=== PATIENT | female | born 2000 | race Caucasian/White ===

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

== ENCOUNTER 2018-02-15 11:01 | Emergency (ER) | payer SELFPAY ==
[~2018-02-15] VITALS: Ht 152.4 cm; Wt 49.1 kg
[2018-02-15 11:15] VITALS: BP 133/80; TEMP 98.8
[2018-02-15 12:36] LABS: COLLECTION METHOD CLEAN CATCH
[2018-02-15 12:42] LABS: BASO % 0.3 % (0.0-2.0); EOS # 0.1 (0.0-0.7); EOS % 0.6 % (0-4.0); GRAN # 6.7 (1.4-6.5); GRAN % 75.7 % (42.2-75.2); HEMATOCRIT 38.4 % (35.0-45.0); HEMOGLOBIN 12.9 g/dl (12.0-15.0); LYMPH # 1.2 (1.2-3.4); LYMPH % 13.9 % (20.0-51.0); MEAN CELL VOLUME 90 fl (80.0-95.0); MEAN CORPUSCULAR HEMOGLOBIN 30 pg (26.0-32.0); MEAN CORPUSCULAR HGB CONC 34 g/dl (33.0-37.0); MEAN PLATELET VOLUME 11.7 fl (7.4-10.4); MONO # 0.8 (0.1-0.6); MONO % 9.3 % (1.7-9.3); PLATELET COUNT 200 K/mm3 (130-400); RED BLOOD COUNT 4.27 M/mm3 (4.10-5.30); REDCELL DISTRIBUTION WIDTH-CV 12.4 % (11.5-14.5)
[2018-02-15 12:54] LABS: PH 7 (5-8); SQUAMOUS EPITHELIAL 0-2 /hpf; URINE APPEARANCE Hazy; URINE BACTERIA None Seen /hpf; URINE BILIRUBIN Negative (NEGATIVE); URINE BLOOD Negative (NEGATIVE); URINE COLOR Yellow; URINE GLUCOSE Negative (NEGATIVE); URINE KETONE Negative (NEGATIVE); URINE LEUKOCYTE ESTERASE Negative (NEGATIVE); URINE NITRATE Negative (NEGATIVE); URINE PROTEIN(semi-quant) Negative (NEGATIVE); URINE RBC 0-2 /hpf
[2018-02-15 13:06] LABS: ALBUMIN 4.1 gm/dL (3.5-5.0); BILIRUBIN,TOTAL 1.4 mg/dL (0.0-1.0); CALCIUM 9.4 mg/dL (8.4-10.2); CREATININE, serum 0.57 mg/dL (0.52-1.25); POTASSIUM 3.9 mmol/L (3.4-5.0); TOTAL PROTEIN 7.8 gm/dL (6.4-8.2)
[2018-02-15 13:17] LABS: C-REACTIVE PROTEIN 1.1 mg/dL (0.0-0.9)
[2018-02-15] MEDS ORDERED: MOTRIN 800800 MG/TAB PO (13:41)
[2018-02-15 13:49] VITALS: PULSE 68
== END 2018-02-15 13:50 | disposition home or self-care (01) ==
LOC: COL.ER 11:01
PROVIDERS: Emergency Medicine
DX: R10.2 Pelvic and perineal pain (principal)

== ENCOUNTER 2018-07-11 20:35 | Emergency (ER) | payer SELFPAY ==
[~2018-07-11] VITALS: Ht 152.4 cm; Wt 49.5 kg
[~2018-07-11 20:35] MED LIST changes: +MOTRIN 800800 MG/TAB PO
[2018-07-11 20:39] VITALS: TEMP 98.5
[2018-07-11] MEDS ORDERED: ZOFRAN ODT4 MG PO (21:24)
[2018-07-11 21:40] VITALS: BP 117/82; PULSE 90
== END 2018-07-11 21:41 | disposition home or self-care (01) ==
LOC: COL.ER 20:35
DX: R11.2 Nausea with vomiting, unspecified (principal); R19.7 Diarrhea, unspecified

== ENCOUNTER 2018-07-26 20:55 | Emergency (ER) | payer SELFPAY ==
[~2018-07-26] VITALS: Ht 152.4 cm; Wt 49.1 kg
[~2018-07-26 20:55] MED LIST changes: +ZOFRAN ODT4 MG PO
[2018-07-26 21:00] VITALS: BP 119/70
[2018-07-26] MEDS ORDERED: PHENERGAN 25 TA25 MG PO (21:12)
[2018-07-26 21:36] LABS: BASO % 0.4 % (0.0-2.0); EOS # 0.1 (0.0-0.7); EOS % 1.2 % (0-4.0); GRAN # 5.8 (1.4-6.5); GRAN % 67.5 % (42.2-75.2); HEMATOCRIT 42.5 % (35.0-45.0); HEMOGLOBIN 14.7 g/dl (12.0-15.0); LYMPH # 2.1 (1.2-3.4); LYMPH % 24.5 % (20.0-51.0); MEAN CELL VOLUME 90 fl (80.0-95.0); MEAN CORPUSCULAR HEMOGLOBIN 31 pg (26.0-32.0); MEAN CORPUSCULAR HGB CONC 35 g/dl (33.0-37.0); MEAN PLATELET VOLUME 11.5 fl (7.4-10.4); MONO # 0.5 (0.1-0.6); MONO % 6.2 % (1.7-9.3); PLATELET COUNT 294 K/mm3 (130-400); RED BLOOD COUNT 4.75 M/mm3 (4.10-5.30); REDCELL DISTRIBUTION WIDTH-CV 11.7 % (11.5-14.5)
[2018-07-26 21:46] LABS: ALANINE AMINOTRANSFERASE 28 U/L (9-52); ALBUMIN 4.7 gm/dL (3.5-5.0); ALKALINE PHOSPHATASE 54 U/L (50-136); ANION GAP 8 mmol/L (7-16); AST,SGOT 29 U/L (15-37); BILIRUBIN,TOTAL 1.3 mg/dL (0.0-1.0); BLOOD UREA NITROGEN 11 mg/dL (7-17); CALCIUM 9.6 mg/dL (8.4-10.2); CARBON DIOXIDE 27 mmol/L (22-30); CHLORIDE 107 mmol/L (98-107); GLUCOSE 92 mg/dL (74-106); LIPASE 91 U/L (23-300); POTASSIUM 3.8 mmol/L (3.4-5.0); SODIUM 141 mmol/L (137-145); TOTAL PROTEIN 8.3 gm/dL (6.4-8.2)
[2018-07-26 21:48] LABS: C-REACTIVE PROTEIN < 0.5 mg/dL (0.0-0.9)
[2018-07-26 22:56] VITALS: PULSE 98; TEMP 99.3
== END 2018-07-26 22:56 | disposition home or self-care (01) ==
LOC: COL.ER 20:55
PROVIDERS: Emergency Medicine
DX: R19.7 Diarrhea, unspecified (principal); R11.2 Nausea with vomiting, unspecified
CPT/HCPCS: J2405; J7030

== ENCOUNTER 2018-10-17 15:12 | Emergency (ER) | payer SELFPAY ==
[~2018-10-17] VITALS: Ht 152.4 cm; Wt 49.1 kg
[~2018-10-17 15:12] MED LIST changes: +PHENERGAN 25 TA25 MG PO
[2018-10-17 15:19] VITALS: TEMP 98.9
[2018-10-17 17:16] LABS: COLLECTION METHOD CLEAN CATCH
[2018-10-17 17:24] LABS: PH 7 (5-8); SQUAMOUS EPITHELIAL 0-2 /hpf; URINE APPEARANCE Clear; URINE BACTERIA None Seen /hpf; URINE BILIRUBIN Negative (NEGATIVE); URINE BLOOD Negative (NEGATIVE); URINE COLOR Colorless; URINE GLUCOSE Negative (NEGATIVE); URINE KETONE Negative (NEGATIVE); URINE LEUKOCYTE ESTERASE Negative (NEGATIVE); URINE NITRATE Negative (NEGATIVE); URINE PROTEIN(semi-quant) Negative (NEGATIVE); URINE RBC None Seen /hpf; URINE UROBILINOGEN Negative (NEGATIVE)
[2018-10-17] MEDS ORDERED: FLEXERIL 1010 MG/TAB PO (17:40)
[2018-10-17 18:00] VITALS: BP 113/72; PULSE 76
== END 2018-10-17 18:09 | disposition home or self-care (01) ==
LOC: COL.ER 15:12
PROVIDERS: Physician Assistant
DX: M54.5 Low back pain (principal)
CPT/HCPCS: J1885

== ENCOUNTER 2018-12-30 13:32 | Emergency (ER) | payer SELFPAY ==
[~2018-12-30] VITALS: Ht 165.1 cm; Wt 49.1 kg
[~2018-12-30 13:32] MED LIST changes: +FLEXERIL 1010 MG/TAB PO
[2018-12-30 13:43] VITALS: TEMP 100.3
[2018-12-30 14:52] LABS: COLLECTION METHOD CLEAN CATCH
[2018-12-30 14:59] LABS: BASO % 0.3 % (0.0-2.0); EOS # 0.1 (0.0-0.7); EOS % 0.8 % (0-4.0); GRAN # 3.8 (1.4-6.5); GRAN % 62.4 % (42.2-75.2); HEMATOCRIT 43.2 % (35.0-45.0); HEMOGLOBIN 14.4 g/dl (12.0-15.0); LYMPH # 1.5 (1.2-3.4); LYMPH % 24.4 % (20.0-51.0); MEAN CELL VOLUME 90 fl (80.0-95.0); MEAN CORPUSCULAR HEMOGLOBIN 30 pg (26.0-32.0); MEAN CORPUSCULAR HGB CONC 33 g/dl (33.0-37.0); MEAN PLATELET VOLUME 11.3 fl (7.4-10.4); MONO # 0.7 (0.1-0.6); MONO % 11.9 % (1.7-9.3); PLATELET COUNT 257 K/mm3 (130-400); RED BLOOD COUNT 4.79 M/mm3 (4.10-5.30); REDCELL DISTRIBUTION WIDTH-CV 12.2 % (11.5-14.5)
[2018-12-30 15:01] LABS: PH 9 (5-8); SQUAMOUS EPITHELIAL 0-2 /hpf; URINE APPEARANCE Clear; URINE BACTERIA Rare /hpf; URINE BILIRUBIN Negative (NEGATIVE); URINE BLOOD Negative (NEGATIVE); URINE COLOR Yellow; URINE GLUCOSE Negative (NEGATIVE); URINE KETONE Negative (NEGATIVE); URINE LEUKOCYTE ESTERASE Negative (NEGATIVE); URINE NITRATE Negative (NEGATIVE); URINE PROTEIN(semi-quant) Negative (NEGATIVE); URINE RBC 0-2 /hpf
[2018-12-30 15:13] LABS: ALANINE AMINOTRANSFERASE < 6 U/L (9-52); ALBUMIN 4.9 gm/dL (3.5-5.0); ALKALINE PHOSPHATASE 57 U/L (50-136); ANION GAP 9 mmol/L (7-16); AST,SGOT 35 U/L (15-37); BILIRUBIN,TOTAL 1.6 mg/dL (0.0-1.0); BLOOD UREA NITROGEN 9 mg/dL (7-17); C-REACTIVE PROTEIN 0.6 mg/dL (0.0-0.9); CALCIUM 10.4 mg/dL (8.4-10.2); CARBON DIOXIDE 25 mmol/L (22-30); CHLORIDE 108 mmol/L (98-107); GLUCOSE 79 mg/dL (74-106); POTASSIUM 3.5 mmol/L (3.4-5.0); SODIUM 143 mmol/L (137-145)
[2018-12-30] MEDS ORDERED: FLAGYL500 MG PO (17:10)
[2018-12-30 17:43] VITALS: BP 100/88; PULSE 68
[2018-12-31] MEDS ORDERED: ZITHROMAX500 M2 PO (02:07)
== END 2018-12-30 17:40 | disposition home or self-care (01) ==
LOC: COL.ER 13:32
PROVIDERS: Nurse Practitioner
DX: N76.0 Acute vaginitis (principal); B96.89 Other specified bacterial agents as the cause of diseases classified elsewhere; Z97.5 Presence of (intrauterine) contraceptive device
CPT/HCPCS: J1885; J2405; J7030